=== PATIENT | male | born 1960 | race Caucasian/White ===

== ENCOUNTER 2025-02-10 09:25 | Outpatient (CLI) | payer BC, SELFPAY ==
--- NOTE | 2025-02-10 09:34 | ECG_ITS ---
Test Date: 2025-02-10 09:52:22 Measurements Intervals [place] Rate: 67 P: 5 RI: 169 QRS: 5 QRSD: 95 T: -5 QT: 407 QTc: 430 Interpretive Statements SINUS RHYTHM NORMAL ELECTROCARDIOGRAM No previous ECG available for comparison Electronically Signed On 02-10-2025 13:21:05 PICTURE ENGRAVER by Elian Caballero M.D.
[2025-02-10 10:23] LABS: Amylase 72 U/L (30-110); Lipase 41 U/L (23-300)
== END 2025-02-10 09:26 | disposition home or self-care (01) ==
PROVIDERS: PCP Emergency Medicine; Visit Provider Surgery
DX: Z01.818 Encounter for other preprocedural examination (principal); K80.10 Calculus of gallbladder with chronic cholecystitis without obstruction
CPT/HCPCS: 36415; 82150; 83690; 93005

== ENCOUNTER 2025-02-22 01:26 | Day surgery (SDC) | payer BC, SELFPAY ==
[2025-02-09 09:27] VITALS: BMI 37.7
--- NOTE | 2025-02-09 09:36 | PC.NURSE ---
[facility] has started construction of its new state of the art ER which will open Spring 2026. With this, we anticipate parking may be a challenge for some our surgical patients and families. Parking spaces are limited but are available for all Surgical, obstetrics, and ER patients sharing this lot. If you arrive and find you are having a hard time finding a parking space, please note that we understand the challenges, please drive around the hospital and park near Hospital Entrance 1. When you enter this entrance, you can ask a volunteer to direct or take you back to the surgical waiting area to check in. We appreciate everyone?s understanding of these expected challenges while we build for your future. Report to the Outpatient Waiting Room, entrance under the green pavilion located off [address], at time _1000_ on date _[id number]_. Planned Procedure Time: _1200_.? Time changes happen often and if your time is changed the preop area will call you the afternoon before. - You and your visitor will be asked to self-screen and do not enter if you have any COVID symptoms. Please call surgeon if you need to reschedule. - A mask is optional within the hospital at this time. Patients may have clear liquids (water, carbonated beverages, clear teas, apple juice) until 3 hours prior to surgery with a maximum of 20 ounces. - No food from midnight until time of surgery and no smoking, or chewing tobacco (or any form of nicotine). No chewing gum, candy or mints. Take only the following medications with a SIP of water on the morning of surgery: ___None____ DO NOT STOP ANY OF YOUR OTHER PRESCRIPTION MEDICATIONS PRIOR TO SURGERY EXCEPT THE FOLLOWING Hold all vitamins and supplements for 3 days per anesthesiologist. Medications to discontinue per physician Date to take last dose Please no make-up, nail kyrgyz, hairspray, perfume, deodorant, or body powder the day of surgery.? No jewelry (including any body piercings) or valuables the day of surgery, leave them at home.? Please take a shower or bath the night before, or the morning of, surgery with an antibacterial soap.? Wear comfortable, loose fitting clothing.? - Jewelry must be removed prior to entering the operating room.? Rings and piercings that are not removed may be cut off. - The hospital will not accept responsibility for valuables.? - Please leave all valuables, including medications, at home the day of surgery. If you are going home after surgery, a licensed tow car driver must drive you home.? - NO public transportation without another adult if you receive anesthesia. - We recommend that an adult stay with you for 24 hours following discharge. - We also recommend that you do not drive, make important decision, drink alcoholic beverages, or take any drugs that were not prescribed by your health care provider for at least 24 hours after your discharge time. Follow any additional instructions given to you from your surgeon. Telephone instructions given to _Andy__and asked if any additional questions and then verbalized understanding. Patient advised to call surgeon office or pre surgery nurse liaison [phone] if any additional questions.
[2025-02-22] VITALS (8 sets, daily range): BP systolic 136–179; BP diastolic 76–100; PULSE 62–84; RESP 12–22; TEMP 36.1–36.3; O2SAT 97–100
--- OUTSIDE RECORDS SUMMARY | 2025-02-22 01:29 | XMS_ITS | Clinical Summary ---
Author Organization [facility] Address [facility] [place] [address] Care Team Providers Care Microsoft Crm Developer Name Role Phone Elian Cardenas MD Primary Care Provider [phone] Encounters Date Type Department Care Team Description 02/03/2025 12:35 PM ANCILLARY SERVICES MANAGER THERAPY - 02/03/2025 11:59 PM ANCILLARY SERVICES MANAGER THERAPY Hospital Encounter [facility] Ultrasound [address] [place], [place] [id number] Elian Cadrenas MD Discharge Disposition: Home or Self Care (Routine Discharge) 02/03/2025 Travel from Last 3 Months Social History Tobacco Use Types Packs/Day Years Used Date Smoking Tobacco: Never Assessed Sex and Gender Information Value Date Recorded Sex Assigned at Not on file Legal Sex Male 7:31 AM CDT Gender Identity Not on file Sexual Orientation Not on file Plan of Treatment Health Maintenance Due Date Last Done Comments Colorectal Cancer Screening Colonoscopy (10 Years) 1960 Annual Physical 07/03/1963 Hepatitis C 1978 DTaP, Tdap and Td Vaccines ( 1 - Tdap) 07/03/1979 Pneumococcal Vaccine: 50+ Ye ars (1 of 1 - PCV) 2010 Zoster Vaccines (1 of 2) 2010 COVID-19 Vaccine ( - 2024-2 6 season) 2024 Influenza Adult (#1) 2024 RSV Immunization or 60+ Years (1 - 1-dose 75+ series) 07/03/2035 Hepatitis A Vaccines Aged Out No long er eligible based on patient's age to complete this topic Meningococcal B Vaccine Aged Out No l onger eligible based on patient's age to complete this topic Meningococcal Vaccine Aged Out No therese poly eligible based on patient's age to complete this topic RSV Immunizations Under 20 Months Aged Out No longer eligible based on patient's age to complete this topic Procedures Procedure Name Priority Date/Time Associated Diagnosis Comments US ABD LIMITED Routine 02/03/2025 1:29 PM ANCILLARY SERVICES MANAGER THERAPY Abdominal distension (gaseous) from Last 3 Months Results * US ABD LIMITED (02/03/2025 1:29 PM ANCILLARY SERVICES MANAGER THERAPY) Anatomical Region Laterality Modality Abdomen Ultrasound 02/03/2025 5:19 PM ANCILLARY SERVICES MANAGER THERAPY Impressions 02/03/2025 5:23 PM ANCILLARY SERVICES MANAGER THERAPY IMPRESSION: 1. Cholelithiasis with minimal pericholecystic fluid. No pain while imaging over the gallbladder.. 2. If indicated follow-up with nuclear medicine scan. 3. Moderately severe fatty infiltration of the liver. Ordered By: ELIAN CARDENAS Interpreted By: Doug Felix, 02/03/2025 5:19 PM Narrative 02/03/2025 5:23 PM ANCILLARY SERVICES MANAGER THERAPY [place] [address] [place] [address] IMAGING STUDIES: US ABD LIMITED DATE: 02/03/2025 12:50 PM COMPARISON STUDIES: No previous exams available CLINICAL HISTORY: Abdominal distension (gaseous). FINDINGS: Nondistended gallbladder with 2 large calculi near the neck of the gallbladder. Largest calculus measures 4 x 3 cm. Mild sludge in the gallbladder. No gallbladder wall thickening. Minimal pericholecystic fluid. No pain while imaging over the gallbladder.. If indicated follow-up with nuclear medicine scan. Moderately severe fatty infiltration of the liver without focal mass..Hepatic and portal veins are patent.. Common bile duct measures.5.9 mm. Right kidney ulibwrxg61.2 x 5.0 x 5.4 cm. No focal mass or hydronephrosis. Partially visualized pancreas without gross abnormality. Procedure Note Anthony Felix MD - 02/03/2025 [facility] [address] [place] [phone] IMAGING STUDIES: US ABD LIMITED DATE: 02/03/2025 12:50 PM COMPARISON STUDIES: No previous exams available CLINICAL HISTORY: Abdominal distension (gaseous). FINDINGS: Nondistended gallbladder with 2 large calculi near the neck of thegallbladder. Largest calculus measures 4 x 3 cm. Mild sludge in the gallbladder. No gallbladder wall thickening. Minimalpericholecystic fluid. No pain while imaging over the gallbladder.. If indicated follow-up with nuclear medicine scan. Moderately severe fatty infiltration of the liver without focalmass..Hepatic and portal veins are patent.. Common bile duct measures.5.9mm. Right kidney hbrogxcs17.2 x 5.0 x 5.4 cm. No focal mass orhydronephrosis. Partially visualized pancreas without gross abnormality. IMPRESSION: 1. Cholelithiasis with minimal pericholecystic fluid. No pain whileimaging over the gallbladder.. 2. If indicated follow-up with nuclear medicine scan. 3. Moderately severe fatty infiltration of the liver. Ordered By: ELIAN CARDENAS Interpreted By: Doug Felix, 02/03/2025 5:19 PM us Elina Cardenas MD ULTRASOUND Final Result from Last 3 Months Insurance [facility] Care Teams Microsoft Crm Developer Relationship Specialty Start Date End Date Elian Cardenas MD [address] [place], [place] [id number] PCP - General INTERNAL MEDICINE 05/27/19
[2025-02-22] MEDS: KETOROLAC 15 MG/ML VIAL (*BKC) IV PUSH (10:20)
[2025-02-22] MEDS: LACTATED RINGERS 1,000 ML 30 ML IV CONT ×2 (10:20→12:06)
[2025-02-22] MEDS: ACETAMINOPHEN 500 MG TABLET 1000 MG PO (10:25)
--- NOTE | 2025-02-22 11:41 | WPDHPUPDATE1 ---
History and Physical Update Update Date/Time: 02/22/25 11:41 History and Physical has been reviewed, including an updated exam of the patient. There are NO changes in the patient's condition. Risks, benefits, and alternatives have been discussed and questions answered. Patient agrees to proceed with procedure.
--- NOTE | 2025-02-22 12:05 | WPDANESEPPF ---
Anes - Initial Pre Proc Eval Procedure: Operation Date: 02/22/25 12:00 Proposed Procedures p Laparoscopic Cholecystectomy - Jada Serra MD Date/Time: 02/22/25 12:05 Surgeon: Jada Serra MD Pre Op Diagnosis: chronic calculous cholecystitis Patient Data Age: 64 Gender: M Height: 1.8 m Weight: 121.3 kg Last Vital Signs Temp 36.3 C L 02/22/25 10:10 Pulse 84 02/22/25 10:10 Resp 18 02/22/25 10:10 BP 169/89 H 02/22/25 10:39 Pulse Ox 97 02/22/25 10:10 O2 Del Method Room Air 02/22/25 10:10 Allergies Allergy/AdvReac Type Severity Reaction Status Date / Time No Known Allergies Allergy Verified 02/22/25 10:12 Home Medications ?Medication ?Instructions ?Recorded ?Confirmed ?Type No Home Medications 01/30/25 02/09/25 History Patient hx anesthesia problems: none Family hx anesthesia problems: none Results Review: All pre-operative results and documents have been reviewed as part of the pre-operative evaluation. [facility] Past Medical History Medical History Fatigue Vitamin D deficiency Palpitations Essential (primary) hypertension Screening PSA (prostate specific antigen) Knee pain, left Lipids abnormal Surgical History Surgical History Hx of varicose vein ligation History of tonsillectomy during childhood Family History Family History Father Family history of diabetes mellitus in first degree relative Diabetes mellitus Mother Patient's mother is Ovarian cancer Cerebrovascular accident Social History Social History Smoking status: Current some day smoker Tobacco type: cigars Alcohol intake: current Drinks per week: 7 Substance use: never Substance use type: does not use Lack of Transportation: No Lack of Food: Never True Current Housing: Decline to Answer Concerned About Future Housing: Decline to Answer Difficulty Paying Gas/Electric Bills: Decline to Answer Difficulty Paying for Meds: Decline to Answer Currently Unemployed: Decline to Answer Education: Decline to Answer Difficulty w/ Childcare or Family Care: Decline to Answer Living arrangements: with family Occupation/Education: retired Additional occupation/education comments: Retired Spiritual care concerns: No Anes - Eval Final PreProcedure Day of Procedure 02/22/25 12:05 Patient weight: obese Heart: regular rate and rhythm Lungs: clear to auscultation Airway: Mallampati scale class II Neurological: alert and oriented Last oral intake: >/= 8 hours ASA classification: III Emergent: no Anesthetic plan: proceed Anesthesia type and monitoring: general ETT and standard monitoring Results Review: All pre-operative results and documents have been reviewed as part of the pre-operative evaluation. Informed Consent: The patient's anesthetic plan and its attendant risks and benefits were discussed with the patient/family/POA. Questions were solicited and answers provided to the satisfaction of the patient/family/POA.
[2025-02-22] MEDS: ceFAZolin 3 GM/D5W 100 ML 100 ML IVPB (12:15)
--- NOTE | 2025-02-22 12:34 | S_PTH ---
PATIENT: Ollie Marinelli LOC: [facility] U#:[id number] AGE/SX: 64/M ROOM: RE02/22/[address]: Jada Serra MD : 1960 BED: DIS: 02/22/2025 SPEC #: [id number] RECD: 02/22/25 14:06 STATUS: MARIA A REQ #: [id number] LELA: 02/22/25 12:[address]: Jada Serra DEPT: [facility] Surgical RECD BY: Julia James ENTERED: 02/22/25 14:06 SP TYPE: Surgical OTHR DR: Elian Rivera MD Tissues: A - Gallbladder Procedures: Hematoxylin and Eosin Stain Gross and Microscopic Level 3
--- NOTE | 2025-02-22 13:30 | P.OP_ITS ---
Procedure Note - Detailed Date of Procedure 02/22/25 Pre-op Diagnosis chronic calculous cholecystitis Post-op Diagnosis Same Procedure Performed Laparoscopic cholecystectomy Surgeon Jada Serra MD Anesthesia General and Local Indications 64 y/o c chronic cholecystitis, cholelithiasis Findings Cholecystitis with cholelithiasis Description of Procedure The patient was taken to the operating room placed in the supine position. After adequate induction of general anesthesia, the patient was prepped and draped in normal sterile fashion. A time-out was then performed to verify the patient's identity as well as the procedure being performed. I then made a 5 mm incision in the infraumbilical region. Through this, a Veress needle was placed into the peritoneal cavity and CO2 gas was then insufflated. After adequate pneumoperitoneum was achieved, the Veress needle was removed and a 5 mm optiview trocar was placed through this incision under direct visualization. I then placed the laparoscope through this trocar site and under direct visualization placed a further 12 mm subxiphoid port as well as 2 additional 5 mm ports in the right upper abdomen. The gallbladder was then identified and was noted to be inflamed, distended, and full of gallstones. I was able to place a grasper at the dome of the gallbladder and this was retracted anterior and cephalad up over the liver. A 2nd retractor was then placed at the infundibulum and retracted laterally, this allowed visualization of the triangle of Calot. I then was able to visualize the cystic duct in its entirety from its proximal insertion into the gallbladder, to its distal junction with the common hepatic/common bile duct junction. At this point, I carefully skeletonized the proximal cystic duct with the [place] dissector. I then clipped and transected the proximal cystic duct. Next I visualized the cystic artery. Again the artery was skeletonized, clipped, and transected. I then used the Bovie cautery to take down the pe ritoneal attachments of the gallbladder off the liver bed. This was somewhat difficult given the amount of inflammation in the posterior space. Once the gallbladder specimen was completely detached, an endo-pouch was placed through the 12 mm port site. I then placed the gallbladder specimen into the Endo pouch and removed the endo-pouch from the 12 mm port site. Of note, we had to enlarge the incision to allow extraction of the specimen. The specimen will now be sent to pathology for further review. I then copiously irrigated the right upper quadrant. Hemostasis was noted in the liver bed, the clips were noted to be in good position on both the cystic duct stump and the cystic artery stump. No other pathology was noted in the right upper quadrant. I then moved the laparoscope to the subxiphoid port. No iatrogenic injury or other pathology was noted in the lower abdomen. I then closed the 12 mm trocar site under direct visualization using the Harmeet cone and 0 Vicryl suture. At this point, the abdomen was desufflated and all ports removed. All port sites were then closed with 4.O Monocryl subcuticular sutures. Dermabond was placed on each incision. The patient tolerated the procedure well, was extubated in the operating room postoperative and will be transferred to the recovery room in stable condition Estimated Blood Loss 10 Drains No Packing No Pathology Yes Complications No immediate complications Condition Stable Disposition PACU [facility] Billing Surgery - Charge Forward: Surgery Billing
== END 2025-02-22 14:55 | disposition home or self-care (01) ==
PROVIDERS: PCP Emergency Medicine; Visit Provider Surgery
PROC: 0FT44ZZ Resection of Gallbladder, Percutaneous Endoscopic Approach (ICD-10-PCS; CPT 47562; principal; 2025-02-22 12:00)
DX: K80.10 Calculus of gallbladder with chronic cholecystitis without obstruction (principal); F17.290 Nicotine dependence, other tobacco product, uncomplicated; E66.9 Obesity, unspecified; Z68.37 Body mass index [BMI] 37.0-37.9, adult
CPT/HCPCS: 47562; 88304; A9270; J0690; J1100; J1885; J2003; J2250; J2405; J2704; J3010; J7120